=== PATIENT | female | born 1975 ===

== ENCOUNTER 2025-04-04 20:10 | Emergency (ER) | payer SELFPAY ==
[~2025-04-04] VITALS: Ht 154.9 cm; Wt 68.2 kg
[2025-04-04 20:23] VITALS: TEMP 98.1
[2025-04-04] MEDS: IBUPROFEN 400 MG TABLET PO ONE (23:53)
[2025-04-04] MEDS: ACETAMINOPHEN 500 MG TABLET PO ONE (23:53)
[2025-04-05] MEDS: LIDOCAINE 1% 10 ML VIAL ID ONE (00:08)
[2025-04-05] MEDS: PERTUSS(ACELL),DIPH,TET/PF 0.5 ML SYRINGE [ADULT] IM. ONE (01:16)
[2025-04-05 02:40] VITALS: BP 148/78; PULSE 80; RESP 16; O2SAT 98
== END 2025-04-05 03:08 | disposition home or self-care (01) ==
LOC: EMS 20:10
DX: S81.012A Laceration without foreign body, left knee, initial encounter (principal); I10 Essential (primary) hypertension; W19.XXXA Unspecified fall, initial encounter; Y93.89 Activity, other specified; Y92.89 Other specified places as the place of occurrence of the external cause; Y99.8 Other external cause status
CPT/HCPCS: 99283; 73562; 12005; 90715; 90471; J3490